=== PATIENT | female | born 2000 | race Caucasian/White ===

== ENCOUNTER 2019-08-31 09:56 | Emergency (ER) | payer MEDICAID, OTHER ==
[~2019-08-31] VITALS: Ht 165 cm; Wt 112.3 kg
[~2019-08-31 09:56] MED LIST: ALB0.5V; MONT5TAB11; NEOM10DR9 OT; SULF1TAB38 PO
[2019-08-31 10:38] LABS: BILIRUBIN,URINE NEGATIVE (NEGATIVE); CLARITY,URINE CLEAR; COLOR,URINE YELLOW; GLUCOSE, URINE (UA) NEGATIVE (NEGATIVE); KETONES,URINE NEGATIVE (NEGATIVE); LEUKOCYTE ESTERASE ,URINE TRACE (NEGATIVE); NITRITE,URINE NEGATIVE (NEGATIVE); PH,URINE 5.5 (5-9); PROTEIN,URINE NEGATIVE (NEGATIVE)
[2019-08-31 10:41] LABS: BASOPHILS % (AUTO) 0 % (0-10); EOSINOPHILS # (AUTO) 0.3 10^3/uL (0.0-0.3); EOSINOPHILS % (AUTO) 2 % (0-10); HEMATOCRIT 40 % (35-52); LYMPHOCYTES # (AUTO) 2.2 X 10^3 (1.0-4.0); LYMPHOCYTES % (AUTO) 20 % (12-44); MEAN CORPUSCULAR HEMOGLOBIN 27 PG (25-34); MEAN CORPUSCULAR HGB CONC 33 G/DL (32-36); MEAN CORPUSCULAR VOLUME 82 FL (80-99); MEAN PLATELET VOLUME 9.2 FL (7.4-10.4); MONOCYTES # (AUTO) 0.7 X 10^3 (0.0-1.0); MONOCYTES % (AUTO) 7 % (0-12); NEUTROPHILS # (AUTO) 7.8 X 10^3 (1.8-7.8); NEUTROPHILS % (AUTO) 71 % (42-75); PLATELET COUNT 435 10^3/uL (130-400); RED CELL DISTRIBUTION WIDTH 13.6 % (10.0-14.5)
--- NOTE | 2019-08-31 10:41 | ED Abdominal Pain ---
General Chief Complaint: Abdominal/GI Problems Stated Complaint: ABD PAIN Nursing Triage Note: PT CO OF ABD PAIN RATES 02/27 STARTED THIS AM. PT DENIES FEVER Sepsis Screen: No Definite Risk Source of Information: Patient Exam Limitations: No Limitations History of Present Illness Date Seen by Provider: Aug 31, 2019 Time Seen by Provider: 10:40 Initial Comments To ER with reports of suprapubic abdominal pain that began this morning. No dysuria no vaginal discharge. This pain awakened her from sleep this morning. Timing/Duration: 4-6 Hours Severity/Quality: Moderate Location: Suprapubic Radiation: No Radiation Activities at Onset: None Associated Symptoms: Denies Symptoms Allergies and Home Medications Allergies Coded Allergies: Penicillins (Unverified Allergy, Mild, 01/31/09) Home Medications No Active Prescriptions or Reported Meds Patient Home Medication List Home Medication List Reviewed: Yes Review of Systems Review of Systems Constitutional: see HPI EENTM: No Symptoms Reported Respiratory: No Symptoms Reported Cardiovascular: No Symptoms Reported Gastrointestinal: See HPI, Abdominal Pain Genitourinary: No Symptoms Reported Musculoskeletal: no symptoms reported Skin: no symptoms reported Psychiatric/Neurological: No Symptoms Reported Endocrine: No Symptoms Reported Hematologic/Lymphatic: No Symptoms Reported Past Rmkrfec-Enwtzo-Lhefjd Hx Patient Social History Recent Foreign Travel: No Contact w/Someone Who Travel: No Recent Infectious Disease Expo: No Past Medical History : No Last Menstrual Period: Aug 19, 2019 Reproductive Disorders: No Physical Exam Vital Signs Vital Signs - First Documented 08/31/19 10:15 Temp 36.9 Pulse 86 Resp 18 B/P (MAP) 134/95 (108) Pulse Ox 98 Capillary Refill : Less Than 3 Seconds Height/Weight/BMI Height: '" Weight: lbs. oz. kg; 41.00 BMI Method: General Appearance: WD/WN, no apparent distress HEENT: PERRL/EOMI, normal ENT inspection Respiratory: no respiratory distress, no accessory muscle use Gastrointestinal: normal bowel sounds, soft, tenderness (suprapubic midline) Extremities: normal range of motion, non-tender Pelvic: other (pelvic exam done with 2 female apparel manufacture instructor at the bedside. There is no cervical discharge or cervical motion tenderness,) Neurologic/Psychiatric: alert, normal mood/affect, oriented x 3 Skin: normal color, warm/dry Progress/Results/Core Measures Results/Orders Lab Results Laboratory Tests Test 08/31/19 10:25 08/31/19 10:30 08/31/19 11:25 Range/Units Urine Color YELLOW Urine Clarity CLEAR Urine pH 5.5 5-9 Urine Specific [place] >=1.030 1.016-1.022 Urine Protein NEGATIVE NEGATIVE Urine Glucose (UA) NEGATIVE NEGATIVE Urine Ketones NEGATIVE NEGATIVE Urine Nitrite NEGATIVE NEGATIVE Urine Bilirubin NEGATIVE NEGATIVE Urine Urobilinogen 0.2 < = 1.0 MG/DL Urine Leukocyte Esterase TRACE H NEGATIVE Urine RBC (Auto) NEGATIVE NEGATIVE Urine RBC NONE /HPF Urine WBC 0-2 /HPF Urine Squamous Epithelial Cells 10-25 H /HPF Urine Crystals NONE /LPF Urine Bacteria TRACE /HPF Urine Casts NONE /LPF Urine Mucus SMALL H /LPF Urine Culture Indicated NO White Blood Count 11.0 4.3-11.0 10^3/uL Red Blood Count 4.83 4.35-5.85 10^6/uL Hemoglobin 13.0 11.5-16.0 G/DL Hematocrit 40 35-52 % Mean Corpuscular Volume 82 80-99 FL Mean Corpuscular Hemoglobin 27 25-34 PG Mean Corpuscular Hemoglobin Concent 33 32-36 G/DL Red Cell Distribution Width 13.6 10.0-14.5 % Platelet Count 435 H 130-400 10^3/uL Mean Platelet Volume 9.2 7.4-10.4 FL Neutrophils (%) (Auto) 71 42-75 % Lymphocytes (%) (Auto) 20 12-44 % Monocytes (%) (Auto) 7 0-12 % Eosinophils (%) (Auto) 2 0-10 % Basophils (%) (Auto) 0 0-10 % Neutrophils # (Auto) 7.8 1.8-7.8 X 10^3 Lymphocytes # (Auto) 2.2 1.0-4.0 X 10^3 Monocytes # (Auto) 0.7 0.0-1.0 X 10^3 Eosinophils # (Auto) 0.3 0.0-0.3 10^3/uL Basophils # (Auto) 0.0 0.0-0.1 10^3/uL Sodium Level 138 135-145 MMOL/L Potassium Level 3.9 3.6-5.0 MMOL/L Chloride Level 106 98-107 MMOL/L Carbon Dioxide Level 23 21-32 MMOL/L Anion Gap 9 5-14 MMOL/L Blood Urea Nitrogen 11 7-18 MG/DL Creatinine 0.88 0.60-1.30 MG/DL Estimat Glomerular Filtration Rate > 60 BUN/Creatinine Ratio 13 Glucose Level 89 70-105 MG/DL Calcium Level 9.6 8.5-10.1 MG/DL Corrected Calcium 9.3 8.5-10.1 MG/DL Total Bilirubin 0.2 0.1-1.0 MG/DL Aspartate Amino Transf (AST/SGOT) 11 5-34 U/L Alanine Aminotransferase (ALT/SGPT) 25 0-55 U/L Alkaline Phosphatase 91 40-136 U/L Total Protein 7.9 6.4-8.2 GM/DL Albumin 4.4 3.2-4.5 GM/DL Micro Results Microbiology 08/31/19 Genital Culture, Resulted Pending 08/31/19 Wet Prep - Final, Resulted My Orders Orders - PJ MCNEIL APRN Cbc With Automated Diff (08/31/19 10:36) Comprehensive Metabolic Panel (08/31/19 10:36) Ed Iv/Invasive Line Start (08/31/19 10:36) Ct Abd/Pelv W (Appendicitis) (08/31/19 10:36) Iohexol Injection (Omnipaque 350 Mg/Ml 1 (08/31/19 10:45) Di Iv Start (Assessment) .IV start (08/31/19 10:40) Received Contrast (Hold Metformin- Contr (08/31/19 10:45) Ns (Ivpb) (Sodium Chloride 0.9% Ivpb Bag (08/31/19 10:45) Wet Prep (08/31/19 11:18) Neisseria Gonorrhea Swab (08/31/19 11:18) Genital Culture (08/31/19 11:18) Chlamydia Trachomatis Swab (08/31/19 11:18) Medications Given in ED Current Medications Medications Dose Ordered Sig/Lizbeth Route Start Time Stop Time Status Last Admin Dose Admin Iohexol 100 ml ONCE ONCE IV 08/31/19 10:45 08/31/19 10:46 DC 08/31/19 11:13 100 ML Sodium Chloride 100 ml ONCE ONCE IV 08/31/19 10:45 08/31/19 10:46 DC 08/31/19 11:13 80 ML Vital Signs/I&O 08/31/19 10:15 Temp 36.9 Pulse 86 Resp 18 B/P (MAP) 134/95 (108) Pulse Ox 98 Blood Pressure Mean: 108 Departure Impression Primary Impression: Ruptured ovarian cyst Disposition: 01 HOME, SELF-CARE Condition: Stable Departure-Patient Inst. Decision time for Depature: 11:51 Referrals: NO,LOCAL PHYSICIAN (PCP) Primary Care Physician Patient Instructions: Ovarian Cysts Add. Discharge Instructions: 1. Return to ER for any concerns 2. Follow-up with your doctor next week 3. All discharge instructions reviewed with patient and/or family. Voiced understanding. Scripts Hydrocodone/Acetaminophen (Blomkest 5-325 Tablet) 1 Each Tablet 1 TAB PO Q4-6HR for Pain MDD 10 TABS for 7 Days, #5 TAB Prov: PJ MCNEIL APRN 08/31/19 PJ MCNEIL APRN Aug 31, 2019 10:41
[2019-08-31] MEDS ORDERED: NS 100 ML (IVPB) BAG IV ONE (10:45)
[2019-08-31] MEDS ORDERED: HOLD METFORMIN - RECEIVED CONTRAST 20 ML VIAL IV SCH (10:45)
[2019-08-31] MEDS ORDERED: IOHEXOL 350 MG/ML 100 ML (OMNIPAQUE 350) VIAL IV ONE (10:45)
[2019-08-31 10:47] LABS: BACTERIA,URINE TRACE /HPF; WBC,URINE 0-2 /HPF
[2019-08-31 10:55] LABS: ALANINE AMINOTRANSFERASE 25 U/L (0-55); ALBUMIN 4.4 GM/DL (3.2-4.5); ALKALINE PHOSPHATASE 91 U/L (40-136); BILIRUBIN,TOTAL 0.2 MG/DL (0.1-1.0); BUN/CREATININE RATIO 13; CALCIUM 9.6 MG/DL (8.5-10.1); CARBON DIOXIDE 23 MMOL/L (21-32); CHLORIDE 106 MMOL/L (98-107); CREATININE SERUM 0.88 MG/DL (0.60-1.30); GFR ESTIMATED > 60; GLUCOSE 89 MG/DL (70-105); POTASSIUM 3.9 MMOL/L (3.6-5.0); SODIUM 138 MMOL/L (135-145); TOTAL PROTEIN 7.9 GM/DL (6.4-8.2)
--- NOTE | 2019-08-31 10:55 | NUR ---
TO ROOM REPORTS PAIN GONE AFTER MEDS.
--- NOTE | 2019-08-31 11:32 | Diagnostic Imaging Report ---
PROCEDURE: CT abdomen and pelvis with contrast, rule out appendicitis. TECHNIQUE: Multiple contiguous axial images were obtained through the abdomen and pelvis after the administration of intravenous contrast. All CT scans use one or more of the following dose optimizing techniques: Automated exposure control, MA and/or KvP adjustment based on a patient size and exam type, or iterative reconstruction. INDICATION: Pelvic pain, nausea. COMPARISON: No priors. FINDINGS: There is no hydroureteronephrosis. The liver, gallbladder, bile ducts, spleen, adrenals, and pancreas are all negative. There is diverticulosis of the sigmoid colon without features of acute diverticulitis. There is a left ovarian cystic lesion measuring 2.6 x 1.4 cm with undulated crenulated borders likely involuting follicle or ruptured cyst. This probably accounts for a small volume of pelvic free fluid isolated to the cul-de-sac. There are no findings suggestive of an abscess nor torsion. The small and large bowel is unobstructed. The appendix is well visualized and normal. IMPRESSION: 1. Likely collapsing cyst or involuting follicle in the left ovary presumed to account for small-volume pelvic free fluid in the cul-de-sac. 2. Noninflamed mild sigmoid diverticulosis, normal appendix with nonfocal unobstructed urinary tracts. Dictated by: Dictated on workstation # [id number]
[2019-08-31] MEDS ORDERED: HYDR-4226 PO (11:52)
[2019-08-31] MEDS ORDERED: KETOROLAC 30 MG/ML VIAL IVP ONE (12:00)
[2019-08-31 12:02] VITALS: BP 134/95
--- OUTSIDE RECORDS SUMMARY | 2019-09-09 13:35 | XMS REPORT ---
Author Author Meghann Urrutia Organization [facility] Address [address] [place] [address] Care Team Providers Care Director Of Group Counseling Program Name Role Phone ROCK Urrutia Unavailable PROBLEMS Type Condition ICD9-CM Code [id number] Code Onset Dates Condition S tatus SNOMED Code Problem Verruca B07.9 Active 42265373 Problem Contraception management Z30.9 Activ e 82511515 Problem Other general counseling and advice for contrace ptive management V25.09 Active 246575990 Problem Environmental allergies Z91.09 Active 240014572 Problem RAD (reactive airway disease) J45.909 Active 599863645196 Problem Initial encounter for management of contraceptive patch us e Z30.8 Active [id number] ALLERGIES No Information ENCOUNTERS Encounter Location Date Diagnosis [facility] [address] [facility] [id number] [address] [place] [phone] November, Morbid obesity E66.01 ; Sore throat J02.9 and Viral upper respiratory infection J06.9 [facility] [address] [facility] [id number] [address] [place] [phone] November, Common wart B07.8 [facility] [address] [facility] [id number] [address] [place] [phone] Oct, Initial encounter for manage ment of contraceptive patch use Z30.8 ; Contraception management Z30.9 and Verruca B07.9 [facility] [address] [facility] [id number] [address] [place] [phone] Oct, Environmental allergies Z91. 09 and RAD (reactive airway disease) J45.909 [facility] [address] [facility] [id number] [address] [place] [phone] Oct, [facility] [address] [id number] [address] [place] [phone] Oct, [facility] [address] [id number] [address] [place] [phone] Feb, [facility] [address] [id number] [address] [place] [phone] Feb, [facility] [address] [id number] [address] [place] [phone] Jan, [facility] [address] [id number] [address] [place] [phone] Jan, [facility] [address] [id number] [address] [place] [phone] Oct, [facility] [address] [id number] [address] [place] [phone] Oct, [facility] [address] [id number] [address] [place] [phone] Feb, [facility] [address] [id number] [address] [place] [phone] Dec, [facility] [address] [id number] [address] [place] [phone] Dec, IMMUNIZATIONS No Known Immunizations SOCIAL HISTORY Never Assessed REASON FOR VISIT PLAN OF CARE VITAL SIGNS MEDICATIONS No Known Medications RESULTS No Results PROCEDURES No Known procedures INSTRUCTIONS MEDICATIONS ADMINISTERED No Known Medications MEDICAL (GENERAL) HISTORY Type Description Date Medical History asthma Medical History allergies Surgical History Broken wrist(L) Hospitalization History asthma attack/ [place]
--- OUTSIDE RECORDS SUMMARY | 2019-09-09 13:35 | XMS REPORT ---
Author Author Meghann Urrutia Organization [facility] Address [address] [place] [address] Care Team Providers Care Welfare Case Worker Name Role Phone ROCK Urrutia Unavailable PROBLEMS Type Condition ICD9-CM Code [id number] Code Onset Dates Condition S tatus SNOMED Code Problem Verruca B07.9 Active 64130950 Problem Contraception management Z30.9 Activ e 35454027 Problem Other general counseling and advice for contrace ptive management V25.09 Active 114420465 Problem Environmental allergies Z91.09 Active 690650468 Problem RAD (reactive airway disease) J45.909 Active 777642465729 Problem Initial encounter for management of contraceptive patch us e Z30.8 Active 579390129 ALLERGIES No Information ENCOUNTERS Encounter Location Date Diagnosis [facility] [address] [facility] [id number] [address] [place] [address] November, Morbid obesity E66.01 ; Sore throat J02.9 and Viral upper respiratory infection J06.9 [facility] [address] [phone] November, Common wart B07.8 [facility] [address] [address] Oct, Initial encounter for management of cont raceptive patch use Z30.8 ; Contraception management Z30.9 and Verruca B07.9 [facility] [address] [address] Oct, Environmental allergies Z91.09 and RAD ( reactive airway disease) J45.909 [facility] [address] [phone] Oct, [facility] [address] [phone] Oct, [facility] [address] [id number] [place] [address] Feb, [facility] [address] [id number] [place] [address] Feb, [facility] [address] [id number] [place] [address] Jan, [facility] [address] [id number] [place] [address] Jan, [facility] [address] [id number] [place] [address] Oct, [facility] [address] [id number] [place] [address] Oct, [facility] [address] [id number] [place] [address] Feb, [facility] [address] [id number] [place] [address] Dec, [facility] [address] [id number] [place] [address] 14 Dec, 2010 IMMUNIZATIONS No Known Immunizations SOCIAL HISTORY Never Assessed REASON FOR VISIT PLAN OF CARE VITAL SIGNS Height 64 in 2014-02-01 Weight 202.6 lbs 2014-02-01 Temperature 97.6 degrees Fahrenheit 2014-02-01 Heart Rate 86 bpm 2014-02-01 Respiratory Rate 22 2014-02-01 Blood pressure systolic 118 mmHg 2014-02-01 Blood pressure diastolic 70 mmHg 2014-02-01 MEDICATIONS No Known Medications RESULTS No Results PROCEDURES Procedure Date Ordered Result Body Site URINE TEST February 01, 2014 INSTRUCTIONS MEDICATIONS ADMINISTERED No Known Medications MEDICAL (GENERAL) HISTORY Type Description Date Medical History asthma Medical History allergies Surgical History Broken wrist(L) Hospitalization History asthma attack/ [place]
--- OUTSIDE RECORDS SUMMARY | 2019-09-09 13:35 | XMS REPORT | Continuity of Care Document ---
Author Organization Unknown Address Unknown Phone Unavailable Allergies Active Description Code Type Severity Reaction Onset Reported/Identified Relationship to Patient Clinical Status Yes Penicillins Drug Allergy N/A N/A 01/26/2009 Yes Penicillins [id number] Drug Aller gy Mild N/A 01/31/2009 Medications There is no data. Problems Date Dx Coded Attending Type Code Diagnosis Diagnosed By 02/29/2008 LUIS GAGNON DO 477.9 ALLERGIC RHINITIS 02/29/2008 LUIS GAGNON DO 493.92 ASTHMA (ACUTE) EXACERBATION 02/29/2008 LUIS GAGNON DO 477.9 ALLERGIC RHINITIS 02/29/2008 LUIS GAGNON DO 493.92 ASTHMA (ACUTE) EXACERBATION 02/29/2008 LUIS GAGNON DO 477.9 ALLERGIC RHINITIS 02/29/2008 LUIS GANGON DO 493.92 ASTHMA (ACUTE) EXACERBATION 01/26/2009 LUIS GAGNON DO 278.00 OBESITY 01/26/2009 LUIS GAGNON DO 493.90 ASTHMA 01/26/2009 LUIS GAGNON DO V20.2 NORMAL ROUTINE HISTORY AND PHYSICAL WELL CHILD (6 - 12) 01/26/2009 LUIS GAGNON DO 278.00 OBESITY 01/26/2009 LUIS GAGNON DO 493.90 ASTHMA 01/26/2009 LUIS GAGNON DO V20.2 NORMAL ROUTINE HISTORY AND PHYSICAL WELL CHILD (6 - 12) 01/26/2009 LUIS GAGNON DO 278.00 OBESITY 01/26/2009 LUIS GAGNON DO 493.90 ASTHMA 01/26/2009 LUIS GAGNON DO V20.2 NORMAL ROUTINE HISTORY AND PHYSICAL WELL CHILD (6 - 12) 03/20/2009 LUIS GAGNON DO 380.10 OTITIS EXTERNA 03/20/2009 LUIS GAGNON DO V06.1 DTP/Dtap, [id number] COMBINED 03/20/2009 LUIS GAGNON DO 380.10 OTITIS EXTERNA 03/20/2009 LUIS GAGNON DO V06.1 DTP/Dtap, [id number] COMBINED 03/20/2009 CHELSI SANTILLAN LUIS Acosta 380.10 OTITIS EXTERNA 03/20/2009 CHELSI SANTILLAN LUIS Dave V06.1 DTP/Dtap, [id number] COMBINED 01/09/2010 CHELSI SANTILLAN LUIS Dave V03.89 NEED FOR OTHER SPECIFIED PROPHYLACTIC VACCINATIONS AND INOCULATIONS AGAINST SINGLE BACTERIAL DISEASES 01/09/2010 CHELSI SANTILLAN LUIS Acosta V05.4 VARICELLA, CHICKENPOX 01/09/2010 CHELSI SANTILLANLUIS V03.89 NEED FOR OTHER SPECIFIED PROPHYLACTIC VACCINATIONS AND INOCULATIONS AGAINST SINGLE BACTERIAL DISEASES 01/09/2010 CHELSI SANTILLAN LUIS Dave V05.4 VARICELLA, CHICKENPOX 01/09/2010 CHELSI SANTILLAN LUIS Dave V03.89 NEED FOR OTHER SPECIFIED PROPHYLACTIC VACCINATIONS AND INOCULATIONS AGAINST SINGLE BACTERIAL DISEASES 01/09/2010 CHELSI SANTILLAN LUIS Dave V05.4 VARICELLA, CHICKENPOX 02/01/2014 CHELSI SANTILLAN LUIS Dave V25.09 CONTRACEPTIVE COUNSELING - GENERAL 02/01/2014 GAGNON LUIS K V25.09 CONTRACEPTIVE COUNSELING - GENERAL Procedures Code Description Performed By [place] [facility] [place] [id number] PREG KAREN TEST, URINE (IN- HOUSE) 02/01/2014 Results Test Result Range Complete urinalysis with reflex to cultu re - 08/31/19 10:25 Urine color determination YELLOW NRG Urine clarity determination CLEAR NR G Urine pH measurement by test strip 5.5 5-9 Specific gravity of urine by test strip >= 1.016-1.022 Urine protein assay by test strip, semi-quantitative NEGATIVE NEGATIVE Urine glucose detection by automated test strip NE GATIVE NEGATIVE Erythrocytes detection in urine sediment by light micr oscopy NEGATIVE NEGATIVE Urine ketones detection by automated test strip NE GATIVE NEGATIVE Urine nitrite detection by test strip NEGATIVE NEGATIVE Urine total bilirubin detection by test strip NEGA TIVE NEGATIVE Urine urobilinogen measurement by automated test strip (mass/volume) 0.2 mg/dL < = 1.0 Urine leukocyte esterase detection by dipstick TRA CE NEGATIVE Automated urine sediment erythrocyte cou nt by microscopy (number/high power field) NONE NRG Automated urine sediment leukocyte count by microscopy (number/high power field) [HPF] NRG Bacteria detection in urine sediment by light microsco py TRACE NRG Squamous epithelial cells detection in u rine sediment by light microscopy 10-25 NRG Crystals detection in urine sediment by light microsco py NONE NRG Casts detection in urine sediment by light microscopy NONE NRG Mucus detection in urine sediment by light microscopy SMALL NRG Complete urinalysis with reflex to culture NO NRG Complete blood count (CBC) with automate d white blood cell (WBC) differential - 08/31/19 10:30 Blood leukocytes automated count (number/volume) 11.0 10*3/uL 4.3-11.0 Blood erythrocytes automated count (number/volume) 4.83 10*6/uL 4.35-5.85 Venous blood hemoglobin measurement (mass/volume) 13.0 g/dL 11.5-16.0 Blood hematocrit (volume fraction) 40 % 35-52 Automated erythrocyte mean corpuscular volume 82 [ foz_us] 80-99 Automated erythrocyte mean corpuscular h emoglobin (mass per erythrocyte) 27 pg 25-34 Automated erythrocyte mean corpuscular h emoglobin concentration measurement (mass/volume) 33 g/dL 32-36 Automated erythrocyte distribution width ratio 13. 6 % 10.0- 14.5 Automated blood platelet count (count/volume) 435 10*3/uL 130-400 Automated blood platelet mean volume measurement 9.2 [foz_us] 7.4-10.4 Automated blood neutrophils/100 leukocytes 71 % 42-75 Automated blood lymphocytes/100 leukocytes 20 % 12-44 Blood monocytes/100 leukocytes 7 % 0-12 Automated blood eosinophils/100 leukocytes 2 % 0-10 Automated blood basophils/100 leukocytes 0 % 0-10 Blood neutrophils automated count (number/volume) 7.8 10*3 1.8-7.8 Blood lymphocytes automated count (number/volume) 2.2 10*3 1.0-4.0 Blood monocytes automated count (number/volume) 0. 7 10*3 0.0-1.0 Automated eosinophil count 0.3 10*3/uL 0 .0-0.3 Automated blood basophil count (count/volume) 0.0 10*3/uL 0.0-0.1 Comprehensive metabolic panel - 08/31/19 10:30 Serum or plasma sodium measurement (moles/volume) 138 mmol/L 135-145 Serum or plasma potassium measurement (moles/volume) 3.9 mmol/L 3.6-5.0 Serum or plasma chloride measurement (moles/volume) 106 mmol/L 98-107 Carbon dioxide 23 mmol/L 21-32 Serum or plasma anion gap determination (moles/volume) 9 mmol/L 5-14 Serum or plasma urea nitrogen measurement (mass/volume ) 11 mg/dL 7-18 Serum or plasma creatinine measurement (mass/volume) 0.88 mg/dL 0.60-1.30 Serum or plasma urea nitrogen/creatinine mass ratio 13 NRG Serum or plasma creatinine measurement w ith calculation of estimated glomerular filtration rate > NRG Serum or plasma glucose measurement (mass/volume) 89 mg/dL 70-105 Serum or plasma calcium measurement (mass/volume) 9.6 mg/dL 8.5-10.1 Serum or plasma total bilirubin measurement (mass/volu me) 0.2 mg/dL 0.1-1.0 Serum or plasma alkaline phosphatase nany surement (enzymatic activity/volume) 91 U/L 40-136 Serum or plasma aspartate aminotransfera se measurement (enzymatic activity/volume) 11 U/L 5-34 Serum or plasma alanine aminotransferase measurement (enzymatic activity/volume) 25 U/L 0-55 Serum or plasma protein measurement (mass/volume) 7.9 g/dL 6.4-8.2 Serum or plasma albumin measurement (mass/volume) 4.4 g/dL 3.2-4.5 CALCIUM CORRECTED 9.3 mg/dL 8.5-10.1 Bacteria identification in genital speci men by aerobe culture - 08/31/19 11:25 FREE TEXT EXTERNAL SEE COMMENTS NRG QUANTITY OF GROWTH Moderate NRG Bacteria identification in genital specimen by aerobe culture [id number] NR Neisseria gonorrhoeae DNA detection by p robe and signal amplification method - 08/31/19 11:25 Gonorrhea amp DNA-urine Not Detected No t Detected Chlamydia trachomatis DNA detection by p robe and signal amplification method - 08/31/19 11:25 Chlamydia trachomatis DNA detection by p robe and target amplification method Detected Not Detected Microscopic examination by wet preparati on - 08/31/19 11:25 WET PREP RESULTS NO CLUE CELLS OBSERVED NRG Encounters ACCT No. Visit Date/Time Discharge Status Pt. Type Provider Facility Loc./Unit Complaint [id number] 11/26/2018 08:10:00 11/26/2018 23:59: 59 CLS Outpatient CHELSEAL ADAMS OBREGON [facility] [id number] 02/01/2014 10:44:00 02/01/2014 23:59: 59 CLS Outpatient LUIS GAGNON DO [id number] 02/01/2014 10:44:00 02/01/2014 23:59: 59 CLS Outpatient LUIS GAGNON DO [id number] 11/08/2013 17:05:00 11/08/2013 23:59: 59 CLS Outpatient LUIS GAGNON DO [id number] 08/31/2019 09:57:00 020 12:03:00 DIS Emergency PJ MCNEIL APRN [facility] ER ABD PAIN
--- OUTSIDE RECORDS SUMMARY | 2019-09-09 13:35 | XMS REPORT ---
Author Author Meghann Calderon Doctor Organization [facility] Address Unknown Phone Unavailable Care Team Providers Care Inspector And Adjuster [employer] Head Name Role Phone Migration, Doctor Unavailable Unavailable PROBLEMS Type Condition ICD9-CM Code KQT08-BS Code Onset Dates Condition S tatus SNOMED Code Problem Verruca B07.9 Active 57984317 Problem Contraception management Z30.9 Activ e 43201407 Problem Other general counseling and advice for contrace ptive management V25.09 Active 167694552 Problem Environmental allergies Z91.09 Active 233277654 Problem RAD (reactive airway disease) J45.909 Active [id number] Problem Initial encounter for management of contraceptive patch us e Z30.8 Active [id number] ALLERGIES No Information ENCOUNTERS Encounter Location Date Diagnosis [place] [id number] [facility] [id number] [address] [place] [phone] November, Common wart B07.8 [facility] [address] [facility] [id number] [address] [place] [phone] Oct, Initial encounter for manage ment of contraceptive patch use Z30.8 ; Contraception management Z30.9 and Verruca B07.9 [facility] [address] [facility] [id number] [address] [place] [phone] Oct, Environmental allergies Z91. 09 and RAD (reactive airway disease) J45.909 [facility] [address] [facility] [id number] [address] [place] [address] Oct, [facility] [address] [place] [id number] [address] [place] [phone] Oct, [facility] [address] [facility] [id number] [address] [place] [phone] Feb, [facility] [address] [place] [id number] [address] [place] [phone] Feb, [facility] [address] [id number] [address] [place] [phone] Jan, [facility] [address] [id number] [address] [place] [phone] Jan, [facility] [address] [id number] [address] [place] [phone] Oct, [facility] [address] [id number] [address] [place] [phone] Oct, [facility] [address] [id number] [address] [place] [phone] Feb, [facility] [address] [id number] [address] [place] [phone] Dec, [facility] [address] [id number] [address] [place] [phone] 14 Dec, 2010 IMMUNIZATIONS No Known Immunizations SOCIAL HISTORY Never Assessed REASON FOR VISIT [facility] [place] PLAN OF CARE VITAL SIGNS MEDICATIONS Medication Instructions Dosage Frequency Start Date End Date Duration S tatus Singulair 10 mg 1 tablet by Oral route 1 time per day Oct, Active MethylPREDNISolone 4 mg by Oral route for 6 days as directed per dose pack Oct, Active ProAir HFA 90 mcg/actuation 2-4 puffs by Inhalation route every 4 hours PRN Always use spacer Oct, Active RESULTS No Results PROCEDURES No Known procedures INSTRUCTIONS MEDICATIONS ADMINISTERED No Known Medications MEDICAL (GENERAL) HISTORY Type Description Date Medical History asthma Medical History allergies Surgical History Broken wrist(L) Hospitalization History asthma attack/ [place]
--- OUTSIDE RECORDS SUMMARY | 2019-09-09 13:35 | XMS REPORT ---
Author Author Meghann Calderon Doctor Organization [facility] Address Unknown Phone Unavailable Care Team Providers Care Transmission Inspector Name Role Phone Migration, Doctor Unavailable Unavailable PROBLEMS Type Condition ICD9-CM Code ZRW21-HH Code Onset Dates Condition S tatus SNOMED Code Problem Verruca B07.9 Active 94037405 Problem Contraception management Z30.9 Activ e 65011013 Problem Other general counseling and advice for contrace ptive management V25.09 Active 820298175 Problem Environmental allergies Z91.09 Active 784393872 Problem RAD (reactive airway disease) J45.909 Active 789588048860 Problem Initial encounter for management of contraceptive patch us e Z30.8 Active 691438211 ALLERGIES No Information ENCOUNTERS Encounter Location Date Diagnosis [facility] [address] [facility] [id number] [address] [place] [address] November, Morbid obesity E66.01 ; Sore throat J02.9 and Viral upper respiratory infection J06.9 [facility] [address] [id number] November, Common wart B07.8 [facility] [address] [phone] Oct, Initial encounter for management of cont raceptive patch use Z30.8 ; Contraception management Z30.[address] [facility] [address] [address] Oct, Environmental allergies Z91.09 and RAD ( reactive airway disease) J45.909 [facility] [address] [address] Oct, [facility] [address] [address] Oct, [place] [address] [address] Feb, [facility] [address] [id number] [place] [address] Feb, [facility] [address] [id number] [place] [address] Jan, [facility] [address] [id number] [place] [address] Jan, [facility] [address] [place] [id number] [place] [address] Oct, [facility] [address] [id number] [place] [address] Oct, [facility] [address] [id number] [place] [address] Feb, [facility] [address] [id number] [place] [address] Dec, [facility] [address] [id number] [place] [address] 14 Dec, 2010 IMMUNIZATIONS No Known Immunizations SOCIAL HISTORY Never Assessed REASON FOR VISIT PLAN OF CARE VITAL SIGNS Weight 207.6 lbs 2013-11-08 Temperature 99.4 degrees Fahrenheit 2013-11-08 Heart Rate 108 bpm 2013-11-08 Respiratory Rate 20 2013-11-08 Blood pressure systolic 110 mmHg 2013-11-08 Blood pressure diastolic 66 mmHg 2013-11-08 MEDICATIONS No Known Medications RESULTS No Results PROCEDURES No Known procedures INSTRUCTIONS MEDICATIONS ADMINISTERED No Known Medications MEDICAL (GENERAL) HISTORY Type Description Date Medical History asthma Medical History allergies Surgical History Broken wrist(L) Hospitalization History asthma attack/ [place]
--- OUTSIDE RECORDS SUMMARY | 2019-09-09 13:35 | XMS REPORT ---
Author Author Meghann PAUL Organization [employer] Address Unknown Phone Unavailable Care Team Providers Care Bmet Name Role Phone ADAMS PAUL CP Unavailable Allergies, Adverse Reactions, Alerts Substance Reaction Event Type Penicillin G Potassium hives Drug Allergy Problems Problem Type Condition Code Onset Dates Condition Statu s Assessment Contraception management Z30.9 Act star Assessment Verruca B07.9 Active Problem Contraception management Z30.9 Act star Problem Verruca B07.9 Active Problem Initial encounter for management of contraceptive patc h use Z30.8 Active Problem Other general counseling and advice for contrace ptive management V25.09 Active Assessment Initial encounter for management of contraceptive patc h use Z30.8 Active Problem Environmental allergies Z91.09 Acti ve Problem RAD (reactive airway disease) J45.909 Active Medications Medication Code System Code Instructions Start Date End Date Status Dosage ProAir HFA [facility] [address]-00 90 mcg/actuation November 08, 2013 2-4 puffs by Inhalation route every 4 hours PRN Always use spacer Singulair [facility] [address]-60 10 mg Quantity Amount, Rou te, and Frequency November 08, 2013 1 tablet by Oral rou te 1 time per day Ortho Tri-Cyclen (28) [facility] [address]-91 0.18/0.215 /0.25 MG-35 MCG Orally Once a day November 15, 2015 1 tablet Procedures Procedure Coding System Code Date Office Visit, Est Pt., Level 4 CPT-4 33783 A pril 2015 URINE TEST CPT-4 06331 November 14 016 Vital Signs Date/Time: November 15, 2015 Temperature 98.0 F Weight 187.0 lbs Height 64.3 in Ht Percentile 52 % BMI 31.80 Index Blood Pressure Diastolic 78 mmHg Blood Pressure Systolic 112 mmHg BMIPercentile 96.63 % Wt Percentile 96.59 % Results No Known Results Summary Purpose [employer] Submission
== END 2019-08-31 12:03 | disposition home or self-care (01) ==
LOC: EDUNIT# 09:56 → ER 09:57
DX: N83.202 Unspecified ovarian cyst, left side (principal); Z88.0 Allergy status to penicillin
CPT/HCPCS: 36415; 74177; 80053; 81000; 84703; 85025; 87070; 87205; 87210; 87491; 87591; 96374